=== PATIENT | male | born 1935 | race Caucasian/White ===

== ENCOUNTER 2023-12-22 10:21 | Outpatient (RCR) | payer MEDICARE, BC, SELFPAY ==
--- NOTE | 2023-12-22 11:52 | OTOPEVDC ---
Assessment and note entered by HILDA Dean/Aurelia, CHT Evaluation Information Subjective Information Patient is referred to our clinic for a wheelchair evaluation. He comes with the diagnoses of M51.36 , Z99.89, Z99.3, and Z91.81. Please refer to 12 page seating/mobility evaluation form for details. Assessment OT Clinical Summary Lee is unable to safely and independently ambulate household distances due to his current impairments with pain, weakness, fatigue, shortness of breath, limited functional standing tolerance, and decreased standing balance. He demonstrates mobility limitations that impairs his ability to safely participate in mobility-related activities of daily living (MRADLs). Patient is not a safe or functional with an optimally fitted walker or cane due to his impairments with balance , pain, and weakness. Patient is unable to propel a properly fitted manual wheelchair due to back pain, right shoulder pain, and compromised cardiac status. Lee is unable to safely transfer on/ off a scooter with small step up as well as shoulder pain with tiller use. The use of a power wheelchair would greatly improve this patient's function and safety with MRADLs. This patient has been evaluated and demonstrates the gross motor, fine motor, and cognitive ability to safety operate a power wheelchair. Patient is willing and able to safely use and transfer into a power wheelchair. Currently patient is limited with ADLs and household tasks due to needing frequent rest breaks and needing to move furniture to have seats to take breaks throughout his home. The use of a power wheelchair will provide the means to allow this patient to be more safe, timely, and independent. Plan of Care OT Services Indicated No
== END 2024-03-21 23:59 | disposition home or self-care (01) ==
LOC: ANHOT 10:21
PROVIDERS: PCP Nurse Practitioner Family; Visit Provider Nurse Practitioner Family
DX: M51.36 Other intervertebral disc degeneration, lumbar region (principal); Z99.89 Dependence on other enabling machines and devices; Z99.3 Dependence on wheelchair; Z91.81 History of falling
CPT/HCPCS: 97167